=== PATIENT | female | born 1995 | race Caucasian/White ===

== ENCOUNTER 2018-10-17 03:04 | Emergency (ER) | payer BC ==
[2018-10-17] MEDS ORDERED: NS 1,000 ML IV ONE ×2 (03:14→03:20)
[2018-10-17] MEDS ORDERED: ONDANSETRON 4 MG/2 ML VIAL IVP ONE (03:14)
--- NOTE | 2018-10-17 03:23 | EDPHY ---
H & P Stated Complaint: Diarrhea-general abd pain Time Seen by Provider: 10/17/18 03:21 HPI/ROS: HPI CHIEF COMPLAINT: Diarrhea, abdominal bloating HISTORY OF PRESENT ILLNESS: 22-year-old female she is otherwise healthy without any significant medical history presents emergency room with diarrhea that is been rather constant since Monday. It is now Monday morning. On Monday she states most time she was having diarrhea watery nonbloody. Also has had some abdominal cramping and abdominal bloating. This continued through Monday and now Monday. She has not had a fever she denies any vomiting. Does complain of some abdominal bloating and abdominal cramps with diarrhea. The patient denies any chest pain or shortness of breath or fever. Watery diarrhea. Due to the ongoing symptoms worsening abdominal bloating and diarrhea she decided come the emergency room. Denies recent antibiotics. Past Medical History: Denies medical history Past Surgical History: Denies recent surgery Social History: Denies drugs alcohol tobacco. Family History: Noncontributory ROS REVIEW OF SYSTEMS: 10 Systems were reviewed and negative with the exception of the elements mentioned in the history of present illness. Exam Constitutional nontoxic no acute distress, triage nursing summary reviewed, vital signs reviewed, awake/alert. Appears well nontoxic Eyes normal conjunctivae and sclera, EOMI, PERRLA. HENT normal inspection, atraumatic, moist mucus membranes, no epistaxis, neck supple/ no meningismus, no raccoon eyes. Respiratory clear to auscultation bilaterally, normal breath sounds, no respiratory distress, no wheezing. Cardiovascular rate normal, regular rhythm, no murmur, no edema, distal pulses normal. Gastrointestinal cannot elicit any tenderness on exam soft, non-tender, no rebound, no guarding, normal bowel sounds, no distension, no pulsatile mass. Genitourinary no CVA tenderness. Musculoskeletal no midline vertebral tenderness, full range of motion, no calf swelling, no tenderness of extremities, no meningismus, good pulses, neurovascularly intact. Skin pink, warm, & dry, no rash, skin atraumatic. Neurologic awake, alert and oriented x 3, AAOx3, moves all 4 extremities equally, motor intact, sensory intact, CN II-XII intact, normal cerebellar, normal vision, normal speech. Psychiatric normal mood/affect. Heme/Lymph/Immune no lymphadenopathy. Differential Diagnosis: Differential diagnosis includes but is not limited to and in no particular order: Bowel obstruction, appendicitis, gallbladder disease, diverticulitis, colitis, enteritis, perforated viscus, gastritis, GERD , esophagitis, urinary tract infection, pyelonephritis, kidney stones Medical Decision Making: Plan for this patient IV establishment IV fluid bolus 2 L, basic blood work, GI stool sample, UA, and re-evaluate. Re-evaluation: CT scan abdomen pelvis with IV contrast negative for acute colitis or inflammatory process visualized. Called to me by Dr. Mcgarry. Patient re-evaluated 6:27 a.m. Resting comfortably. Re-examination of the abdomen is soft nontender. She is not vomiting. No fever. Continues to do well. She has not any vomiting here. Blood work reviewed no high white count. CT scan shows no acute colitis. Stool studies have been sent. Recommend patient stays well hydrated bland diet return if worsening symptoms. She is comfortable this plan. Source: Patient, EMS - Personal History LMP (Females 10-55): 22-28 Days Ago Current Tetanus Diphtheria and Acellular Pertussis (TDAP): Yes - Medical/Surgical History Hx Asthma: No Hx Chronic Respiratory Disease: No Hx Diabetes: No Hx Cardiac Disease: No Hx Renal Disease: No Hx Cirrhosis: No Hx Alcoholism: No Hx HIV/AIDS: No Hx Splenectomy or Spleen Trauma: No Other PMH: anxiety - Social History Smoking Status: Never smoked Constitutional: Initial Vital Signs Temperature (C) 36.9 C 10/17/18 03:10 Heart Rate 82 10/17/18 03:10 Respiratory Rate 16 10/17/18 03:10 Blood Pressure 147/104 H 10/17/18 03:10 O2 Sat (%) 96 10/17/18 03:10 O2 Delivery Mode Room Air Allergies/Adverse Reactions: No Known Allergies Allergy (Unverified 10/17/18 03:09) Home Medications: Medication Instructions Recorded [place] Fe 1-20 Tablet 10/17/18 Zoloft 100mg (*) 10/17/18 Zyrtec 10/17/18 Medical Decision Making - Data Points Laboratory Results: Laboratory Results 10/17/18 03:39 10/17/18 03:39 10/17/18 10/17/18 10/17/18 03:39 03:39 03:39 WBC 7.31 10^3/uL 10^3/uL (3.80-9.50) RBC 5.29 10^6/uL 10^6/uL (4.18-5.33) Hgb 15.1 g/dL g/dL (12.6-16.3) Hct 43.9 % % (38.0-47.0) MCV 83.0 fL fL (81.5-99.8) MCH 28.5 pg pg (27.9-34.1) MCHC 34.4 g/dL g/dL (32.4-36.7) RDW 12.0 % % (11.5-15.2) Plt Count 343 10^3/uL 10^3/uL (150-400) MPV 9.2 fL fL (8.7-11.7) Neut % (Auto) 60.6 % % (39.3-74.2) Lymph % (Auto) 26.4 % % (15.0-45.0) [place] % (Auto) 9.2 % % (4.5-13.0) Eos % (Auto) 2.9 % % (0.6-7.6) Baso % (Auto) 0.4 % % (0.3-1.7) Nucleat RBC Rel Count 0.0 % % (0.0-0.2) Absolute Neuts (auto) 4.43 10^3/uL 10^3/uL (1.70-6.50) Absolute Lymphs (auto) 1.93 10^3/uL 10^3/uL (1.00-3.00) Absolute Monos (auto) 0.67 10^3/uL 10^3/uL (0.30-0.80) Absolute Eos (auto) 0.21 10^3/uL 10^3/uL (0.03-0.40) Absolute Basos (auto) 0.03 10^3/uL 10^3/uL (0.02-0.10) Absolute Nucleated RBC 0.00 10^3/uL 10^3/uL (0-0.01) Immature Gran % 0.5 % % (0.0-1.1) Immature Gran # 0.04 10^3/uL 10^3/uL (0.00-0.10) Sodium 137 mEq/L mEq/L (135-145) Potassium 3.5 mEq/L mEq/L (3.5-5.2) Chloride 106 mEq/L mEq/L (97-110) Carbon Dioxide 20 mEq/l L mEq/l (22-31) Anion Gap 11 mEq/L mEq/L (6-14) BUN 9 mg/dL mg/dL (7-23) Creatinine 0.7 mg/dL mg/dL (0.6-1.0) Estimated GFR > 60 Glucose 94 mg/dL mg/dL (70-100) Calcium 9.3 mg/dL mg/dL (8.5-10.4) Total Bilirubin 0.5 mg/dL mg/dL (0.1-1.4) Conjugated Bilirubin 0.4 mg/dL mg/dL (0.0-0.5) Unconjugated Bilirubin 0.1 mg/dL mg/dL (0.0-1.1) AST 25 IU/L IU/L (14-46) ALT 32 IU/L IU/L (9-52) Alkaline Phosphatase 94 IU/L IU/L (38-126) Total Protein 7.8 g/dL g/dL (6.3-8.2) Albumin 4.4 g/dL g/dL (3.5-5.0) Lipase 47 IU/L IU/L (23-300) Beta HCG, Qual NEGATIVE Medications Given: Discontinued Medications Sodium Chloride (Ns) 1,000 mls @ 0 mls/hr IV EDNOW ONE; Wide Open PRN Reason: Protocol Stop: 10/17/18 03:15 Last Admin: 10/17/18 03:39 Dose: 1,000 mls Sodium Chloride (Ns) 1,000 mls @ 0 mls/hr IV ONCE ONE PRN Reason: Wide Open Stop: 10/17/18 03:21 Last Admin: 10/17/18 03:39 Dose: 1,000 mls Ondansetron HCl (Zofran) 4 mg IVP EDNOW ONE Stop: 10/17/18 03:15 Last Admin: 10/17/18 03:51 Dose: Not Given Departure - Departure Disposition: Home, Routine, Self-Care Clinical Impression: Diarrhea Condition: Good Instructions: Dehydration (ED), Acute Diarrhea (ED) Additional Instructions: 1. [place] diet. 2. No spicy fatty greasy foods. 3. Return emergency room if worsening abdominal pain, fever, vomiting, diarrhea Referrals: VINCE LEWIS [Other] - As per Instructions
[2018-10-17 03:53] LABS: PLATELET COUNT 343 10^3/uL (150-400)
[2018-10-17] MEDS ORDERED: IOPAMIDOL (ISOVUE 370) 100 ML BTL IV ONE (05:34)
[2018-10-17 06:38] VITALS: BP 115/65
== END 2018-10-17 06:38 | disposition home or self-care (01) ==
DX: R19.7 Diarrhea, unspecified (principal); E86.0 Dehydration
CPT/HCPCS: Q9967